=== PATIENT | male | born 1980 | race African-American/Black ===

== ENCOUNTER 2017-04-01 00:06 | Emergency (ER) | payer MEDICAID ==
[~2017-04-01] VITALS: Ht 177.8 cm; Wt 61.0 kg
[2017-04-01 02:23] VITALS: BP 120/78
== END 2017-04-01 02:26 | disposition home or self-care (01) ==
LOC: ER 00:06
DX: B01.9 Varicella without complication (principal)
CPT/HCPCS: 99283

== ENCOUNTER 2017-12-31 16:38 | Emergency (ER) | payer MEDICAID ==
[~2017-12-31] VITALS: Ht 177.8 cm; Wt 62.0 kg
[2017-12-31] MEDS ORDERED: LIDOCAINE HCL 1% 20ML VIAL (Pyxis) INJ MC ONE (18:00)
[2017-12-31] MEDS ORDERED: TETANUS, DIPHTHERIA, PERTUSSIS VAC/PF 0.5ML (>7YR OLD) IM ONE (18:00)
[2017-12-31 20:43] VITALS: BP 119/65
== END 2017-12-31 20:46 | disposition home or self-care (01) ==
LOC: ER 16:38
DX: L03.012 Cellulitis of left finger (principal)
CPT/HCPCS: 10060; 73130; 90471; 90715; 99284; J3490; Z7610

== ENCOUNTER 2018-06-14 16:00 | Emergency (ER) | payer MEDICAID ==
[~2018-06-14] VITALS: Ht 177.8 cm; Wt 63.0 kg
[2018-06-14 17:15] VITALS: BP 120/70
== END 2018-06-14 17:16 | disposition home or self-care (01) ==
LOC: ER 16:00
DX: L03.012 Cellulitis of left finger (principal)
CPT/HCPCS: 99281; 99283

== ENCOUNTER 2018-08-28 14:27 | Emergency (ER) | payer MEDICAID ==
[~2018-08-28] VITALS: Ht 177.8 cm; Wt 62.0 kg
[2018-08-28] MEDS ORDERED: LIDOCAINE HCL/PF 1% 10 MG/ML 5ML VIAL IJ ONE (19:15)
[2018-08-28] MEDS ORDERED: BACITRACIN ZINC OINT UDPKT TOP ONE (19:15)
[2018-08-28 20:29] VITALS: BP 103/76
== END 2018-08-28 20:30 | disposition home or self-care (01) ==
LOC: ER 16:39
DX: L03.113 Cellulitis of right upper limb (principal); D17.21 Benign lipomatous neoplasm of skin and subcutaneous tissue of right arm
CPT/HCPCS: 10060; 99283; J3490; Z7610

== ENCOUNTER 2024-08-02 07:54 | Emergency (ER) | payer MEDICARE, MEDICAID ==
[~2024-08-02] VITALS: Ht 177.8 cm; Wt 60.0 kg
[2024-08-02 07:56] VITALS: O2SAT 99
[2024-08-02] MEDS: IBUPROFEN 400MG TABLET PO ONE (08:52)
[2024-08-02] MEDS ORDERED: AMOX1TAB16 MT (09:34)
[2024-08-02] MEDS: LIDOCAINE HCL 1% 20ML VIAL INFIL ONE (09:37)
[2024-08-02 09:38] VITALS: BP 117/74; PULSE 66; RESP 18; TEMP 37; O2SAT 99
== END 2024-08-02 09:40 | disposition home or self-care (01) ==
LOC: ER 08:06
DX: L03.011 Cellulitis of right finger (principal)
CPT/HCPCS: 99283; 10060; 73130; J3490